=== PATIENT | female | born 1975 | race Caucasian/White ===

== ENCOUNTER → 2017-02-02 | Outpatient (CLI) | payer BC, OTHER ==
[~2017-02-02] MED LIST: AMX500 PO; LRT5 PO; UNKNOWN BP MED
== END | disposition home or self-care (01) ==
LOC: C.PAPS 07:48
PROVIDERS: ATTEND Physician Assistant
DX: Z12.4 Encounter for screening for malignant neoplasm of cervix (principal)

== ENCOUNTER → 2017-02-02 | Outpatient (CLI) | payer BC ==
[2017-02-02 16:21] LABS: HEMATOCRIT 39.7 % (37-47); MEAN CELL VOLUME 89.2 fL (80-100); MEAN CORPUSCULAR HEMOGLOBIN 30.1 pg (25-34); MEAN CORPUSCULAR HGB CONC 33.8 g/dl (32-36); MEAN PLATELET VOLUME 10.7 fL (7.4-10.4); PLATELET COUNT 302 K/uL (130-400); RED BLOOD COUNT 4.45 M/uL (4.2-5.4); WHITE BLOOD COUNT 9.97 K/uL (4.8-10.8)
== END | disposition home or self-care (01) ==
LOC: C.LAB1850 15:25
PROVIDERS: ATTEND Physician Assistant
DX: N92.0 Excessive and frequent menstruation with regular cycle (principal)

== ENCOUNTER → 2017-03-27 | Outpatient (CLI) | payer OTHER | END | disposition home or self-care (01) | LOC: C.LAB1850 08:48 | PROVIDERS: ATTEND Internal Medicine Endocrinology, Diabetes & Metabolism | DX: E28.2 Polycystic ovarian syndrome (principal); I10 Essential (primary) hypertension ==

== ENCOUNTER → 2017-04-09 | Outpatient (CLI) | payer OTHER ==
--- NOTE | 2017-04-09 08:37 | DIAGNOSTIC IMAGING REPORT ---
ABD/PELVIS NO IV OR ORAL CONT CLINICAL HISTORY: 41 years-old Female presenting with bilateral flank PAIN,MICROSCOPIC HEMATURIA, no history of kidney stones. TECHNIQUE: Multidetector CT of the abdomen and pelvis was performed without the use of intravenous contrast. IV contrast: None. A dose lowering technique was used consistent with the principles of ALARA (as low as reasonably achievable). COMPARISON: None. CT DOSE (mGy.cm): The estimated cumulative dose is 893.96 mGy.cm. FINDINGS: Electric Blank[employer] topogram: Unremarkable. Lung bases: Mosaic attenuation at the lung bases could suggest small airways disease. Normal heart size. No pericardial or pleural effusion. Liver: Normal morphology. Density consistent with hepatic steatosis. Biliary: No gross biliary ductal dilatation allowing for noncontrast technique. Normal gallbladder. Pancreas: Normal noncontrast appearance. Spleen: Normal noncontrast appearance. Adrenal glands: Nodular thickening of the medial limb of the left adrenal gland, nonspecific. Right adrenal gland normal. Kidneys and ureters: Multiple bilateral nonobstructing renal calculi, the largest on the right measuring 6 mm and on the left measuring 7 mm. Parapelvic cysts noted bilaterally though more prominently on the left. No hydronephrosis. Ureters normal and nondistended. Distal ureters poorly visualized. Few pelvic phleboliths noted. No convincing evidence of a distal ureteral calculus. Bladder: Normal. Pelvic organs: Intrauterine device is malpositioned and perforates the uterine serosa along the left posterior lateral aspect. The tines of the IUD extend into the mesentery of the sigmoid colon with minimal surrounding inflammatory change and potentially into the lumen of the sigmoid colon. Few foci of gas are noted within the uterus. Foci of gas also evident at the vaginal vault. Bowel: Despite the IUD, no significant inflammatory change of the sigmoid colon apart from minimal infiltration along the IUD in the sigmoid colon mesentery. No bowel obstruction. The appendix is dilated and contains fecal material and gas measuring 8-9 mm in diameter. No periappendiceal fat infiltration. No significant evidence to suggest appendicitis. Peritoneal cavity: No free fluid or intraperitoneal gas. Lymph nodes: No gross lymphadenopathy allowing for noncontrast technique. Vasculature: Normal noncontrast appearance. Abdominal wall: Small fat-containing umbilical hernia. Musculoskeletal: Degenerative changes of the spine. IMPRESSION: 1. Malpositioned intrauterine device with perforation of the uterine serosa along the left posterior lateral aspect. The tines of the IUD extend into the sigmoid colon mesentery and potentially into the lumen of the sigmoid colon. Gas within the endometrial cavity is of uncertain etiology, and a fistulous connection with the sigmoid colon is difficult to exclude. No significant associated inflammatory change. Gynecologic consultation is necessary. 2. Bilateral nonobstructing nephrolithiasis. No hydronephrosis. The report will be called/faxed according to standard departmental protocol. Electronically signed by: Rikki Mueller M.D. 04/09/2017 8:36 AM Dictated Date/Time: 04/09/2017 8:28 AM
== END | disposition home or self-care (01) ==
LOC: C.CTS 04-04 11:56
PROVIDERS: ATTEND Family Medicine
DX: R31.29 Other microscopic hematuria (principal); R10.9 Unspecified abdominal pain